=== PATIENT | female | born 1945 | race Caucasian/White ===

== ENCOUNTER 2017-12-27 08:53 | Inpatient (IN) ==
[2017-12-27] MEDS ORDERED: 0.9 % Sodium Chloride 1,000 ML IVC ONE (09:08)
--- NOTE | 2017-12-27 09:13 | Emergency Department Note ---
Disposition Clinical Impression: Hypotension Sepsis Qualifiers: Sepsis type: sepsis due to unspecified organism Qualified Code(s): A41.9 - Sepsis, unspecified organism Pneumonia Qualifiers: Pneumonia type: due to unspecified organism Laterality: unspecified laterality Lung location: unspecified part of lung Qualified Code(s): J18.9 - Pneumonia, unspecified organism Urinary tract infection Qualifiers: Urinary tract infection type: site unspecified Hematuria presence: without hematuria Qualified Code(s): N39.0 - Urinary tract infection, site not specified Disposition: Admitted As Inpatient Condition: Fair Referrals: Isabelle Dick MD [Primary Care Provider] - Forms: ED Satisfaction Letter Time of Disposition: 10:24 General Adult HPI - General Chief complaint: ED Nausea/Vomiting/Diarrhea Stated complaint: Low BP/Vomiting Time Seen by Provider: 12/27/17 09:07 Source: family (caregiver) Mode of arrival: wheelchair Limitations: language barrier Nursing Notes Reviewed: Yes Vital Signs Reviewed: Yes - History of Present Illness HPI Narrative: 72-year-old female history of MRDD and recent diagnosis of lung cancer 1 week ago presents an emergency department in the presence of paperhanger pipe and family for low blood pressure. Patient was at the [facility] office for consultation where her blood pressure was systolic 94. The paperhanger pipe states this is lower than usual. Of note patient has been coughing, dry heaving and not eating well since they presumed care in August. Since September the patient has lost 20 pounds. Patient resides in the [place] [facility] with 2 caretakers. They have noticed that her urine output has diminished. There is concern for dehydration. The patient is pleasant but has no complaints. The paperhanger pipe and family states she normally can give cues on when she is in pain or uncomfortable. They have not noticed any. Patient does not have a history of hypertension or cardiac ischemic disease. They have not noticed any fevers, rhinorrhea, diarrhea. Caretakers and family states she is acting her baseline. Pain Scale: 0 - Related Data Home Medications Medication Instructions Recorded Confirmed Cholecalciferol (D-3) [Vitamin D] 2,000 unit PO DAILY 09/04/17 12/27/17 FLUoxetine HCl [PROzac] 20 mg PO DAILY #0 11/01/17 12/27/17 traZODone [TraZODone] 50 mg PO HS #0 11/01/17 12/27/17 Alendronate Sodium [Fosamax] 70 mg PO TH 12/09/17 12/27/17 Calcium Carbonate/Vitamin D3 1 tab PO TID 12/09/17 12/27/17 [Oyster Shell 250 mg + Vit D Tb] Acetaminophen [Tylenol] 650 mg PO Q4HR PRN 12/27/17 12/27/17 Benzonatate [Tessalon] 200 mg PO TID PRN 12/27/17 12/27/17 Clindamycin HCl [Cleocin HCl] 300 mg PO TID 12/27/17 12/27/17 Ibuprofen [Motrin] 400 mg PO Q4HR PRN 12/27/17 12/27/17 L. Acidophilus/Pectin, [place] 1 cap PO HS 12/27/17 12/27/17 [Acidophilus Probiotic Capsule] MOM Conc [Milk of Magnesia Conc] 30 ml PO DAILY PRN 12/27/17 12/27/17 Mag Hydrox/Al Hydrox/Simeth 30 ml PO Q4H PRN 12/27/17 12/27/17 [Maalox] Omeprazole [PriLOSEC] 20 mg PO DAILY 12/27/17 12/27/17 Potassium Chloride 10 meq PO BID 12/27/17 12/27/17 Previous Rx's Medication Instructions Recorded Ascorbic Acid [Vitamin C] 500 mg PO DAILY #30 tablet 12/20/17 Ferrous Sulfate 325 mg PO DAILY #30 tablet 12/20/17 HYDROcodone/Acet 5/325 mg [[place] 1 tab PO Q6HR PRN 5 Days #20 tablet 12/20/17 5-325 mg] Loratadine [Claritin] 10 mg PO DAILY PRN #0 12/20/17 Allergies Allergy/AdvReac Type Severity Reaction Status Date / Time Penicillins Allergy See Verified 12/27/17 10:21 Comments All systems ED: reviewed and negative except as stated. Review of Systems: As Per HPI Constitutional: Reports: weakness, weight change (20 pounds). Denies: fever, chills ENT ED: Denies: congestion Cardiovascular: Denies: chest pain Respiratory: Reports: cough. Denies: dyspnea Gastrointestinal: Reports: nausea, constipation. Denies: abdominal pain, diarrhea Genitourinary: Denies: urgency, dysuria Past Medical History - Past Medical History Source: old records reviewed, obtained from family Medical history: Reports: other Surgical history: Reports: non-contributory Psychiatric history: Reports: depression - Social History Smoking Status: Never smoker Smokeless Tobacco Status: No Alcohol use: Reports: none Drug use: Reports: none Physical Exam - General Limitations: language barrier General appearance: alert, in no apparent distress, cachectic (temporal muscle wasting) - Head Head exam: atraumatic, normocephalic, normal inspection - Eye Eye exam: Present: normal appearance, PERRL, EOMI. Absent: scleral icterus - ENT ENT exam: normal exam, normal oropharynx, mucous membranes moist - Neck Neck exam: Present: normal inspection, full ROM, trachea midline. Absent: tenderness - Chest Chest inspection: Present: normal inspection, symmetric chest wall rise - Respiratory Respiratory exam: Present: other (clear but diminished). Absent: respiratory distress, wheezes - Expanded Respiratory Exam Location: decreased breath sounds: Lower - Cardiovascular Cardiovascular exam: Present: regular rate, normal rhythm, normal heart sounds - Abdominal Exam Abdominal exam: Present: soft, Non-Tender, diminished bowel sounds. Absent: tenderness, distention, guarding, rebound, rigidity - Extremities Exam Extremities exam: Present: normal inspection, full ROM, normal capillary refill. Absent: tenderness, pedal edema - Psychiatric Psychiatric exam: Present: flat affect - Skin Skin exam: Present: warm, dry, intact, normal color. Absent: cyanosis, diaphoresis Course Course Narrative: Patient presents with hypotension. She is awake alert and appears in no acute distress. She is not complaining of any complaints at this time. Caretakers report decreased appetite and weight loss. Concern for dehydration. Patient is afebrile but hypotensive systolic 90s. She is not tachycardic. Sepsis workup initiated to rule infection. Will fluid hydrate with IV normal saline. Likely admission. - Reevaluation(s) Reevaluation #1: Review of chest x-ray shows concern for pneumonia seen in the right lung base concerning for possible aspiration. This is new compared to prior CT scan performed over a week ago when she was diagnosed with cancer. She has a leukocytosis of 15. Urinalysis is also consistent with infection positive for nitrite and trace leuk esterase. She has a culture from 12/19/2017 that his pants sensitive after growing klebsiella and strep group b. Blood cultures have been ordered. Will initiate patient on cefepime and vancomycin given her comorbidities and recent hospitalization. Patient is allergic to penicillin due to rash will administer and monitor for any cefepime cross-reactivity. Patient's blood pressure has improved after 500 mL of normal saline, blood pressure has come up to systolic 114. Her lactate is normal at 1.3. She is complaining of some back pain from a prior compression fracture seen on CT scan. She has taken her hydrocodone today will give her another one carefully monitoring hemodynamics. Time: 09:56 Reevaluation #2: Spoke with family and caretakers in the room and they have agreed on code status of do not resuscitate comfort care, they have been in the talks with primary care physician Dr. Dick regarding possible hospice care as she has been told that radiation is not a great option for her. They have a planned biopsy on Saturday to confirm malignancy. Patient will be admitted for suspected sepsis secondary to pneumonia and urinary tract infection, blood pressure has responded to IV fluid within normal lactate to not suspect septic shock. Time: 10:22 - Consultations Consultation #1: Spoke with on-call hospitalist linda Richards to admit for sepsis, pneumonia, UTI, hypotension responsive to IVF. No further orders at this time Time: 10:37 Vital Signs Temperature 98.5 F 12/27/17 08:55 Pulse Rate 94 12/27/17 08:55 Respiratory Rate 18 12/27/17 08:55 Blood Pressure 94/64 12/27/17 08:55 O2 Sat by Pulse Oximetry 96 12/27/17 08:55 Temperature 98.0 F 12/27/17 09:30 Pulse Rate 84 12/27/17 09:30 Respiratory Rate 18 12/27/17 09:30 Blood Pressure 114/76 12/27/17 09:30 O2 Sat by Pulse Oximetry 94 12/27/17 09:30 Oxygen Delivery Oxygen Delivery Room Air Medical Decision Making - MDM Narrative Medical decision making narrative: Patient was discussed with my attending physician who agrees with ED management and final disposition. They independently evaluated the patient. Please refer to their attestation to this encounter for additional information. This note was generated by [employer] voice recognition software and as a result grammatical or spelling errors may occur using this program. - Medical Records Medical records reviewed: Yes I reviewed the patient's medical records. - Lab Data Lab results reviewed: Yes I reviewed the patient's lab results. Result diagrams: 12/27/17 09:08 12/27/17 09:08 Lab Results 12/27/17 12/27/17 12/27/17 Range/Units 09:08 09:08 09:14 WBC 15.0 H (4.3-11.1) K/mcL RBC 4.90 (3.82-4.97) M/mcL Hgb 12.3 (11.5-15.4) g/dL Hct 40.0 (35.3-44.9) % MCV 81.6 L (83.0-100.0) fL MCH 25.1 L (28.0-33.3) pg MCHC 30.8 L (31.6-35.5) g/dL RDW 14.7 H (11.5-14.5) % Plt Count 422 H (140-400) K/mcL MPV 9.2 L (9.4-12.4) fL Immature Gran % 1.5 (0-4) % Seg Neutrophils % 80.3 % Lymphocytes % 8.4 % Monocytes % 7.8 % Eosinophils % 1.5 % Basophils % 0.5 % Neutrophils # 12.0 H (1.6-8.9) K/mcL Lymphocytes # 1.3 (0.6-4.6) K/mcL Monocytes # 1.2 (0.0-1.3) K/mcL Eosinophils # 0.2 (0.0-0.6) K/mcL Basophils # 0.1 (0.0-0.2) K/mcL Sodium 138 (136-145) mEq/L Potassium 3.9 (3.5-5.1) mEq/L Chloride 99 (98-107) mEq/L Carbon Dioxide 31 H (23-29) mEq/L BUN 25 H (8-23) mg/dL Creatinine 0.66 (0.60-1.20) mg/dL Est GFR ( Amer) > 60 (> 60) Est GFR (Non-Af Amer) > 60 (> 60) BUN/Creatinine Ratio 38 H (6-26) Glucose 119 H (70-105) mg/dL POC Glucose (70-99) mg/dL Calculated Osmolality 292 (280-300) Lactic Acid 1.3 (0.5-2.2) mmol/L Calcium 10.0 (8.6-10.3) mg/dL Total Bilirubin 0.5 (0.3-1.0) mg/dL AST 29 (13-39) Units/L ALT 22 (7-52) Units/L Alkaline Phosphatase 180 H (34-104) Units/L Troponin I < 0.03 (< 0.04) ng/mL Serum Total Protein 6.6 (6.4-8.9) g/dL Albumin 3.4 L (3.5-5.7) g/dL Globulin 3.2 (2.4-3.5) g/dL Albumin/Globulin Ratio 1.1 (1.1-2.2) Urine Color (Yellow) Urine Clarity (Clear) Urine pH (5.0-8.0) pH Units Ur Specific [place] (1.010-1.025) Urine Protein (Neg-Trace) mg/dL Urine Glucose (UA) (Normal) mg/dL Urine Ketones (Negative) mg/dL Urine Blood (Negative) Urine Nitrite (Negative) Urine Bilirubin (Negative) Urine Urobilinogen (Normal) mg/dL Ur Leukocyte Esterase (Negative) Urine Microscopic RBC (0-3) per hpf Urine Microscopic WBC (0-3) per hpf Ur Squamous Epith Cells (None-Few) per lpf Urine Bacteria (None-Few) per hpf Hyaline Casts (None-Few) per lpf Ur Culture Indicated? (NO) 12/27/17 12/27/17 Range/Units 09:25 09:31 WBC (4.3-11.1) K/mcL RBC (3.82-4.97) M/mcL Hgb (11.5-15.4) g/dL Hct (35.3-44.9) % MCV (83.0-100.0) fL MCH (28.0-33.3) pg MCHC (31.6-35.5) g/dL RDW (11.5-14.5) % Plt Count (140-400) K/mcL MPV (9.4-12.4) fL Immature Gran % (0-4) % Seg Neutrophils % % Lymphocytes % % Monocytes % % Eosinophils % % Basophils % % Neutrophils # (1.6-8.9) K/mcL Lymphocytes # (0.6-4.6) K/mcL Monocytes # (0.0-1.3) K/mcL Eosinophils # (0.0-0.6) K/mcL Basophils # (0.0-0.2) K/mcL Sodium (136-145) mEq/L Potassium (3.5-5.1) mEq/L Chloride (98-107) mEq/L Carbon Dioxide (23-29) mEq/L BUN (8-23) mg/dL Creatinine (0.60-1.20) mg/dL Est GFR ( Amer) (> 60) Est GFR (Non-Af Amer) (> 60) BUN/Creatinine Ratio (6-26) Glucose (70-105) mg/dL POC Glucose 102 H (70-99) mg/dL Calculated Osmolality (280-300) Lactic Acid (0.5-2.2) mmol/L Calcium (8.6-10.3) mg/dL Total Bilirubin (0.3-1.0) mg/dL AST (13-39) Units/L ALT (7-52) Units/L Alkaline Phosphatase (34-104) Units/L Troponin I (< 0.04) ng/mL Serum Total Protein (6.4-8.9) g/dL Albumin (3.5-5.7) g/dL Globulin (2.4-3.5) g/dL Albumin/Globulin Ratio (1.1-2.2) Urine Color Dark Yellow (Yellow) Urine Clarity Clear (Clear) Urine pH 5.5 (5.0-8.0) pH Units Ur Specific [place] 1.028 H (1.010-1.025) Urine Protein Trace (Neg-Trace) mg/dL Urine Glucose (UA) Normal (Normal) mg/dL Urine Ketones Trace H (Negative) mg/dL Urine Blood Negative (Negative) Urine Nitrite Positive A (Negative) Urine Bilirubin Negative (Negative) Urine Urobilinogen 2.0 H (Normal) mg/dL Ur Leukocyte Esterase Trace H (Negative) Urine Microscopic RBC 3-5 H (0-3) per hpf Urine Microscopic WBC 5-15 H (0-3) per hpf Ur Squamous Epith Cells Many H (None-Few) per lpf Urine Bacteria Many H (None-Few) per hpf Hyaline Casts None Seen (None-Few) per lpf Ur Culture Indicated? NO. A (NO) - Radiology Data Radiology results reviewed: Yes I reviewed the patient's radiology results. Chest X-Ray 12/27/17 09:08 IMPRESSION: New focal airspace opacity in the right lung base suspicious for pneumonia. D/ / Mandy Duran MD / Mandy Duran MD Interpreting Provider: Mandy Duran MD - EKG Data EKG #1 EKG attestation: Yes I reviewed and interpreted this EKG. EKG results narrative: EKG performed 908 normal sinus rhythm 91 beats per minute, normal axis, good R wave progression, no ST elevation or depression, no T-wave inversion. No acute ischemic changes. No old EKG is available for comparison at this time.
[2017-12-27 09:31] LABS: Basophils # 0.1 K/mcL (0.0-0.2); Basophils % 0.5 %; Eosinophils # 0.2 K/mcL (0.0-0.6); Eosinophils % 1.5 %; Hemoglobin 12.3 g/dL (11.5-15.4); Immature Granulocytes % 1.5 % (0-4); Lymphocytes # 1.3 K/mcL (0.6-4.6); Lymphocytes % 8.4 %; Mean Corpuscular HGB Conc 30.8 g/dL (31.6-35.5); Mean Corpuscular Hemoglobin 25.1 pg (28.0-33.3); Mean Corpuscular Volume 81.6 fL (83.0-100.0); Mean Platelet Volume 9.2 fL (9.4-12.4); Monocytes # 1.2 K/mcL (0.0-1.3); Monocytes % 7.8 %; Platelet Count 422 K/mcL (140-400); Red Cell Distribution Width 14.7 % (11.5-14.5); Segmented Neutrophils % 80.3 %
[2017-12-27 09:37] LABS: Bilirubin,Urine Negative (Negative); Blood,Urine Negative (Negative); Clarity,Urine Clear (Clear); Color,Urine Dark Yellow (Yellow); Glucose,Urine (UA) Normal (Normal); Ketones,Urine Trace mg/dL (Negative); Leukocyte Esterase,Urine Trace (Negative); Nitrite,Urine Positive (Negative); PH,Urine 5.5 pH Units (5.0-8.0); Protein,Urine Trace mg/dL (Neg-Trace); Specific Gravity,Urine 1.028 (1.010-1.025)
[2017-12-27 09:40] LABS: Bacteria,Urine Many per hpf (None-Few); Hyaline Casts,Urine None Seen per lpf (None-Few); Squamous Epithelial Cell,Urine Many per lpf (None-Few)
--- NOTE | 2017-12-27 09:42 | Emergency Department Note ---
Disposition Clinical Impression: Hypotension Sepsis Qualifiers: Sepsis type: sepsis due to unspecified organism Qualified Code(s): A41.9 - Sepsis, unspecified organism Pneumonia Qualifiers: Pneumonia type: due to unspecified organism Laterality: unspecified laterality Lung location: unspecified part of lung Qualified Code(s): J18.9 - Pneumonia, unspecified organism Urinary tract infection Qualifiers: Urinary tract infection type: site unspecified Hematuria presence: without hematuria Qualified Code(s): N39.0 - Urinary tract infection, site not specified Disposition: Admitted As Inpatient Referrals: Isabelle Dick MD [Primary Care Provider] - Forms: ED Satisfaction Letter Time of Disposition: 10:42 General Adult HPI - General Chief complaint: ED Nausea/Vomiting/Diarrhea Stated complaint: Low BP/Vomiting Time Seen by Provider: 12/27/17 09:07 Source: family (caregiver) Mode of arrival: wheelchair Limitations: language barrier - History of Present Illness Pain Scale: 0 - Related Data Home Medications Medication Instructions Recorded Confirmed Cholecalciferol (D-3) [Vitamin D] 2,000 unit PO DAILY 09/04/17 12/27/17 FLUoxetine HCl [PROzac] 20 mg PO DAILY #0 11/01/17 12/27/17 traZODone [TraZODone] 50 mg PO HS #0 11/01/17 12/27/17 Alendronate Sodium [Fosamax] 70 mg PO TH 12/09/17 12/27/17 Calcium Carbonate/Vitamin D3 1 tab PO TID 12/09/17 12/27/17 [Oyster Shell 250 mg + Vit D Tb] Acetaminophen [Tylenol] 650 mg PO Q4HR PRN 12/27/17 12/27/17 Benzonatate [Tessalon] 200 mg PO TID PRN 12/27/17 12/27/17 Clindamycin HCl [Cleocin HCl] 300 mg PO TID 12/27/17 12/27/17 Ibuprofen [Motrin] 400 mg PO Q4HR PRN 12/27/17 12/27/17 L. Acidophilus/Pectin, [place] 1 cap PO HS 12/27/17 12/27/17 [Acidophilus Probiotic Capsule] MOM Conc [Milk of Magnesia Conc] 30 ml PO DAILY PRN 12/27/17 12/27/17 Mag Hydrox/Al Hydrox/Simeth 30 ml PO Q4H PRN 12/27/17 12/27/17 [Maalox] Omeprazole [PriLOSEC] 20 mg PO DAILY 12/27/17 12/27/17 Potassium Chloride 10 meq PO BID 12/27/17 12/27/17 Previous Rx's Medication Instructions Recorded Ascorbic Acid [Vitamin C] 500 mg PO DAILY #30 tablet 12/20/17 Ferrous Sulfate 325 mg PO DAILY #30 tablet 12/20/17 HYDROcodone/Acet 5/325 mg [[place] 1 tab PO Q6HR PRN 5 Days #20 tablet 12/20/17 5-325 mg] Loratadine [Claritin] 10 mg PO DAILY PRN #0 12/20/17 Allergies Allergy/AdvReac Type Severity Reaction Status Date / Time Penicillins Allergy See Verified 12/27/17 10:21 Comments Constitutional: Reports: weakness, weight change (20 pounds). Denies: fever, chills ENT ED: Denies: congestion Cardiovascular: Denies: chest pain Respiratory: Reports: cough. Denies: dyspnea Gastrointestinal: Reports: nausea, constipation. Denies: abdominal pain, diarrhea Genitourinary: Denies: urgency, dysuria Past Medical History - Past Medical History Medical history: Reports: other Surgical history: Reports: non-contributory Psychiatric history: Reports: depression - Social History Smoking Status: Never smoker Smokeless Tobacco Status: No Alcohol use: Reports: none Drug use: Reports: none Physical Exam - General Limitations: language barrier General appearance: alert, in no apparent distress, cachectic (temporal muscle wasting) Course Vital Signs Temperature 98.5 F 12/27/17 08:55 Pulse Rate 94 12/27/17 08:55 Respiratory Rate 18 12/27/17 08:55 Blood Pressure 94/64 12/27/17 08:55 O2 Sat by Pulse Oximetry 96 12/27/17 08:55 Temperature 98.0 F 12/27/17 09:30 Pulse Rate 84 12/27/17 09:30 Respiratory Rate 18 12/27/17 09:30 Blood Pressure 114/76 12/27/17 09:30 O2 Sat by Pulse Oximetry 94 12/27/17 09:30 Oxygen Delivery Oxygen Delivery Room Air Medical Decision Making - Lab Data Result diagrams: 12/27/17 09:08 12/27/17 09:08 Lab Results 12/27/17 12/27/17 12/27/17 Range/Units 09:08 09:08 09:14 WBC 15.0 H (4.3-11.1) K/mcL RBC 4.90 (3.82-4.97) M/mcL Hgb 12.3 (11.5-15.4) g/dL Hct 40.0 (35.3-44.9) % MCV 81.6 L (83.0-100.0) fL MCH 25.1 L (28.0-33.3) pg MCHC 30.8 L (31.6-35.5) g/dL RDW 14.7 H (11.5-14.5) % Plt Count 422 H (140-400) K/mcL MPV 9.2 L (9.4-12.4) fL Immature Gran % 1.5 (0-4) % Seg Neutrophils % 80.3 % Lymphocytes % 8.4 % Monocytes % 7.8 % Eosinophils % 1.5 % Basophils % 0.5 % Neutrophils # 12.0 H (1.6-8.9) K/mcL Lymphocytes # 1.3 (0.6-4.6) K/mcL Monocytes # 1.2 (0.0-1.3) K/mcL Eosinophils # 0.2 (0.0-0.6) K/mcL Basophils # 0.1 (0.0-0.2) K/mcL Sodium 138 (136-145) mEq/L Potassium 3.9 (3.5-5.1) mEq/L Chloride 99 (98-107) mEq/L Carbon Dioxide 31 H (23-29) mEq/L BUN 25 H (8-23) mg/dL Creatinine 0.66 (0.60-1.20) mg/dL Est GFR ( Amer) > 60 (> 60) Est GFR (Non-Af Amer) > 60 (> 60) BUN/Creatinine Ratio 38 H (6-26) Glucose 119 H (70-105) mg/dL POC Glucose (70-99) mg/dL Calculated Osmolality 292 (280-300) Lactic Acid 1.3 (0.5-2.2) mmol/L Calcium 10.0 (8.6-10.3) mg/dL Total Bilirubin 0.5 (0.3-1.0) mg/dL AST 29 (13-39) Units/L ALT 22 (7-52) Units/L Alkaline Phosphatase 180 H (34-104) Units/L Troponin I < 0.03 (< 0.04) ng/mL Serum Total Protein 6.6 (6.4-8.9) g/dL Albumin 3.4 L (3.5-5.7) g/dL Globulin 3.2 (2.4-3.5) g/dL Albumin/Globulin Ratio 1.1 (1.1-2.2) Urine Color (Yellow) Urine Clarity (Clear) Urine pH (5.0-8.0) pH Units Ur Specific [place] (1.010-1.025) Urine Protein (Neg-Trace) mg/dL Urine Glucose (UA) (Normal) mg/dL Urine Ketones (Negative) mg/dL Urine Blood (Negative) Urine Nitrite (Negative) Urine Bilirubin (Negative) Urine Urobilinogen (Normal) mg/dL Ur Leukocyte Esterase (Negative) Urine Microscopic RBC (0-3) per hpf Urine Microscopic WBC (0-3) per hpf Ur Squamous Epith Cells (None-Few) per lpf Urine Bacteria (None-Few) per hpf Hyaline Casts (None-Few) per lpf Ur Culture Indicated? (NO) 12/27/17 12/27/17 Range/Units 09:25 09:31 WBC (4.3-11.1) K/mcL RBC (3.82-4.97) M/mcL Hgb (11.5-15.4) g/dL Hct (35.3-44.9) % MCV (83.0-100.0) fL MCH (28.0-33.3) pg MCHC (31.6-35.5) g/dL RDW (11.5-14.5) % Plt Count (140-400) K/mcL MPV (9.4-12.4) fL Immature Gran % (0-4) % Seg Neutrophils % % Lymphocytes % % Monocytes % % Eosinophils % % Basophils % % Neutrophils # (1.6-8.9) K/mcL Lymphocytes # (0.6-4.6) K/mcL Monocytes # (0.0-1.3) K/mcL Eosinophils # (0.0-0.6) K/mcL Basophils # (0.0-0.2) K/mcL Sodium (136-145) mEq/L Potassium (3.5-5.1) mEq/L Chloride (98-107) mEq/L Carbon Dioxide (23-29) mEq/L BUN (8-23) mg/dL Creatinine (0.60-1.20) mg/dL Est GFR ( Amer) (> 60) Est GFR (Non-Af Amer) (> 60) BUN/Creatinine Ratio (6-26) Glucose (70-105) mg/dL POC Glucose 102 H (70-99) mg/dL Calculated Osmolality (280-300) Lactic Acid (0.5-2.2) mmol/L Calcium (8.6-10.3) mg/dL Total Bilirubin (0.3-1.0) mg/dL AST (13-39) Units/L ALT (7-52) Units/L Alkaline Phosphatase (34-104) Units/L Troponin I (< 0.04) ng/mL Serum Total Protein (6.4-8.9) g/dL Albumin (3.5-5.7) g/dL Globulin (2.4-3.5) g/dL Albumin/Globulin Ratio (1.1-2.2) Urine Color Dark Yellow (Yellow) Urine Clarity Clear (Clear) Urine pH 5.5 (5.0-8.0) pH Units Ur Specific [place] 1.028 H (1.010-1.025) Urine Protein Trace (Neg-Trace) mg/dL Urine Glucose (UA) Normal (Normal) mg/dL Urine Ketones Trace H (Negative) mg/dL Urine Blood Negative (Negative) Urine Nitrite Positive A (Negative) Urine Bilirubin Negative (Negative) Urine Urobilinogen 2.0 H (Normal) mg/dL Ur Leukocyte Esterase Trace H (Negative) Urine Microscopic RBC 3-5 H (0-3) per hpf Urine Microscopic WBC 5-15 H (0-3) per hpf Ur Squamous Epith Cells Many H (None-Few) per lpf Urine Bacteria Many H (None-Few) per hpf Hyaline Casts None Seen (None-Few) per lpf Ur Culture Indicated? NO. A (NO) Critical Care Time Critical Care Time: Yes Total Critical Care Time: 40 Attestation: Critical care performed: Time is exclusive of separately billable procedures. Time includes: direct patient care, patient reassessment, coordination of patient care, interpretation of data (laboratory data, radiology data, and respiratory data), review of patient's medical records, medical consultation and documentation of patient care. Procedures included in critical care time: Procedures excluded from critical care time: Attestation Statement - Attestation Attestation: I examined this patient and my medical decision-making was reviewed with the Resident Physician. I agree with the documented findings, disposition and treatment plan as described except to the extent set forth below. Patient presents to the ED with a chief complaint of low blood pressure. Patient was sent from pulmonology office for low blood pressure. She was there today for consultation for her newly diagnosed lung cancer. Ham Trimmer states she has not been eating or drinking well. She is dehydrated. On examination she is awake and alert in no acute distress. Lungs diminished but clear. Plan. Septic workup. Patient's blood pressure here is in the 90s systolic. She is afebrile. This could all be from dehydration. Likely admission. Patient admitted for pneumonia, UTI, sepsis without shock. Blood pressure is improved after single bolus. Patient mentating at baseline. IV antibiotics started. Accepted to medicine service.
[2017-12-27 09:45] LABS: Troponin I < 0.03 ng/mL (< 0.04)
[2017-12-27] MEDS ORDERED: Vancomycin 500 MG in 0.9 % Sodium Chloride 250 ML IVPB ONE ×2 (09:45→12:00)
[2017-12-27] MEDS ORDERED: Cefepime HCl 2,000 MG in Water for inj. (sterile) 20 ML 20 ML IVP ONE (09:45)
[2017-12-27 09:46] LABS: Alanine Aminotransferase 22 Units/L (7-52); Albumin 3.4 g/dL (3.5-5.7); Albumin/Globulin Ratio 1.1 (1.1-2.2); Alkaline Phosphatase 180 Units/L (34-104); Aspartate Amino Transferase 29 Units/L (13-39); BUN/Creatinine Ratio 38 (6-26); Bilirubin,Total 0.5 mg/dL (0.3-1.0); Blood Urea Nitrogen 25 mg/dL (8-23); Carbon Dioxide 31 mEq/L (23-29); Chloride 99 mEq/L (98-107); Globulin 3.2 g/dL (2.4-3.5); Glucose 119 mg/dL (70-105); Osmolality,Calculated 292 (280-300); Potassium 3.9 mEq/L (3.5-5.1); Sodium 138 mEq/L (136-145); Total Protein 6.6 g/dL (6.4-8.9); eGFR For African Americans > 60 (> 60); eGFR For Non-African Americans > 60 (> 60)
[2017-12-27] MEDS ORDERED: Levofloxacin 750 MG/150 ML 750 MG/150 ML BAG IVPB ONE (10:12)
[2017-12-27] MEDS ORDERED: Naloxone 0.4 MG/ML INJ IVP PRN (10:43)
[2017-12-27] MEDS ORDERED: Benzonatate 100 MG CAPSULE PO PRN (10:48)
[2017-12-27] MEDS ORDERED: MOM Conc 10 ML UD.LIQ PO PRN (10:48)
[2017-12-27] MEDS ORDERED: Loratadine 10 MG TABLET PO PRN (10:48)
[2017-12-27] MEDS ORDERED: Mag Hydrox/Al Hydrox/Simeth 30 ML UDC PO PRN (10:48)
[2017-12-27] MEDS: Ipratropium/Albuterol Neb 3 ML IH SCH ×4 (15:10→23:31)
[2017-12-27] MEDS: Ondansetron 4 MG/2 ML VIAL IVP PRN (15:25)
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
[2017-12-27] MEDS: 0.9 % Sodium Chloride 1,000 ML IVC SCH (15:38)
[2017-12-27] MEDS: VITAMIN D3 PO SCH (15:41)
[2017-12-27] MEDS: CALCIUM CARBONATE PO SCH (15:41)
[2017-12-27] MEDS: MethylPREDNISolone 40 MG/ML VIAL IVP SCH ×2 (15:41→18:06)
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
[2017-12-27] MEDS: *HR* HYDROcodone/Acet 5/325 mg TABLET PO PRN (15:58)
[2017-12-27] MEDS: *HR* Promethazine 25 MG/ML VIAL IVP PRN (16:04)
[2017-12-27] MEDS: Lactobacillus 1 EACH CAP.SPRINK PO SCH (21:13)
[2017-12-27] MEDS: *HR* OxyCODONE Immed Rel 5 MG TABLET PO PRN (21:13)
[2017-12-27] MEDS: traZODone 50 MG TABLET PO SCH (21:13)
[2017-12-28] MEDS: 0.9 % Sodium Chloride 1,000 ML IVC SCH (02:05)
[2017-12-28] MEDS: *HR* OxyCODONE Immed Rel 5 MG TABLET PO PRN ×2 (02:06→22:20)
[2017-12-28] MEDS: *HR* Promethazine 25 MG/ML VIAL IVP PRN (02:06)
[2017-12-28] MEDS: VITAMIN D3 PO SCH ×4 (02:06→20:15)
[2017-12-28] MEDS: CALCIUM CARBONATE PO SCH ×4 (02:06→20:15)
[2017-12-28] MEDS: Ipratropium/Albuterol Neb 3 ML IH SCH ×6 (03:45→23:42)
[2017-12-28 04:57] LABS: Hematocrit 30.2 % (35.3-44.9); Immature Granulocytes % 1.9 % (0-4); Lymphocytes % 4.6 %; Mean Corpuscular HGB Conc 32.1 g/dL (31.6-35.5); Mean Corpuscular Hemoglobin 26.1 pg (28.0-33.3); Mean Corpuscular Volume 81.4 fL (83.0-100.0); Mean Platelet Volume 9.7 fL (9.4-12.4); Monocytes % 2.8 %; Platelet Count 350 K/mcL (140-400); Red Blood Count 3.71 M/mcL (3.82-4.97); Red Cell Distribution Width 14.6 % (11.5-14.5); Segmented Neutrophils % 90.4 %
[2017-12-28 04:58] LABS: Basophils % 0.2 %; Eosinophils % 0.1 %; Lymphocytes # 0.7 K/mcL (0.6-4.6); Monocytes # 0.4 K/mcL (0.0-1.3)
[2017-12-28 05:07] LABS: Hemoglobin 9.7 g/dL (11.5-15.4)
[2017-12-28 05:14] LABS: BUN/Creatinine Ratio 28 (6-26); Blood Urea Nitrogen 15 mg/dL (8-23); Calcium 8.6 mg/dL (8.6-10.3); Carbon Dioxide 25 mEq/L (23-29); Chloride 104 mEq/L (98-107); Glucose 154 mg/dL (70-105); Magnesium 1.7 mg/dL (1.6-2.6); Osmolality,Calculated 288 (280-300); Sodium 137 mEq/L (136-145); eGFR For African Americans > 60 (> 60); eGFR For Non-African Americans > 60 (> 60)
[2017-12-28] MEDS: MethylPREDNISolone 40 MG/ML VIAL IVP SCH ×4 (06:02→17:21)
[2017-12-28] MEDS: *HR* Enoxaparin 40 MG/0.4 ML SYRINGE SQ SCH (06:34)
[2017-12-28] MEDS: Cholecalciferol (D-3) 1,000 UNIT TABLET PO SCH (08:24)
[2017-12-28] MEDS: FLUoxetine 20 MG CAPSULE PO SCH (08:24)
[2017-12-28] MEDS: Ascorbic Acid 500 MG TABLET PO SCH (08:25)
[2017-12-28] MEDS: Levofloxacin 750 MG/150 ML 750 MG/150 ML BAG IVPB SCH (08:26)
[2017-12-28] MEDS: *HR* HYDROcodone/Acet 5/325 mg TABLET PO PRN (08:51)
[2017-12-28 10:38] LABS: Adenovirus Not Detected (Not Detect); Bordetella Pertussis Not Detected (Not Detect); Chlamydophila pneumoniae Not Detected (Not Detect); Coronavirus 229E Not Detected (Not Detect); Coronavirus HKU1 Not Detected (Not Detect); Coronavirus NL63 Not Detected (Not Detect); Coronavirus OC43 Not Detected (Not Detect); Human Metapneumovirus Not Detected (Not Detect); Human Rhinovirus/Enterovirus Not Detected (Not Detect); Influenza A Subtype 2009 H1 Not Detected (Not Detect); Influenza A Untypeable Not Detected (Not Detect); Influenza B Not Detected (Not Detect); Mycoplasma pneumoniae Not Detected (Not Detect); Parainfluenza Virus 1 Not Detected (Not Detect); Parainfluenza Virus 2 Not Detected (Not Detect); Parainfluenza Virus 3 Not Detected (Not Detect); Parainfluenza Virus 4 Not Detected (Not Detect); Respiratory Syncytial Virus Not Detected (Not Detect)
--- NOTE | 2017-12-28 14:47 | Internal Med Progress Note ---
Date of Encounter: 12/28/17 Time of Encounter: 14:44 - Assessment and plan (1) Pneumonia Current Visit: Yes Status: Inactive Assessment and plan: Patient percent with worsening shortness of breath, and cough with expectoration History of MRDD, family reporting patient also having some hemoptysis CXR reveals new focal airspace opacity in the right lung base suspicious for pneumonia CTA chest without PE, subcarinal mass worrisome for malignancy Acute compression fracture of T11 noted Legionella and strep pneumococcal antigen pending Sputum culture pending collection, Blood cultures pending Continue respiratory support when necessary, titrate SPO2 to remain greater than 92% Continuous telemetry Continue a BX Levaquin follow cultures and narrow antibiotics as appropriate Continue duo nebs and steroids Caregivers and family members requested for DNR CCA Palliative therapy on board Qualifiers: Pneumonia type: due to unspecified organism Laterality: unspecified laterality Lung location: unspecified part of lung Qualified Code(s): J18.9 - Pneumonia, unspecified organism (2) Mediastinal mass Current Visit: No Status: Acute Assessment and plan: Carinal mass noted on CT 12/18/[address] sanchez as outpatient Patient to undergo forearm nodule biopsy on Saturday per Dr. Gordon while inpatient Per family, plan is to make patient comfort care with home hospice D/W family on Saturday (3) Wedge compression fracture of T11 vertebra Current Visit: No Status: Acute Assessment and plan: T11 compression fracture seen on CTA Cause unclear; consider causes of osteoporosis as well possibly due to metastases Continue supportive care Pain medication as needed Qualifiers: Encounter type: initial encounter Fracture type: closed Qualified Code(s) : S22.080A - Wedge compression fracture of T11-T12 vertebra, initial encounter for closed fracture (4) Urinary tract infection Current Visit: No Status: Inactive Assessment and plan: Urinalysis nitrite positive, trace leukocyte esterase Urine cultures obtained 12/19/17 growing Klebsiella pneumonia, streptococcal lagalactiae with sensitivity to Levaquin Continue Levaquin IV Patient afebrile Qualifiers: Urinary tract infection type: site unspecified Hematuria presence: without hematuria Qualified Code(s): N39.0 - Urinary tract infection, site not specified (5) Hypotension Current Visit: No Status: Inactive Assessment and plan: Hypotension is improved, continue to monitor Qualifiers: Hypotension type: other hypotension type Qualified Code(s): I95.89 - Other hypotension (6) Acute respiratory distress Current Visit: No Status: Resolved Assessment and plan: Is likely Due to pneumonia and lung mass with possibly malignancy she does have reactive airway disease / bronchospasm Respiratory status improving, patient now on room air Continue duo nebs and IV steroids also place on oxygenPRN caregivers and family requested for DNR CCA also requested for palliative care assessment. - Time Spent With Patient Total time spent is greater than 50% in coordination of care (as documented) at patient's floor/unit and/or counseling patient: 25 - 35 minutes - Subjective Interval history: No acute changes overnight. - Constitutional Vitals: Temp Pulse Resp BP Pulse Ox 98.4 F 94 14 113/67 94 12/28/17 11:36 12/28/17 11:36 12/28/17 11:49 12/28/17 11:36 12/28/17 11:49 General appearance: Present: A&O X 0, cooperative, mild distress - Head Head exam: Present: atraumatic, normocephalic - Eye Eye exam: Present: PERRL, conjuntiva pink, sclera anicteric Pupils: Present: PERRL - Neck Neck exam general surgery: Present: supple, trachea midline. Absent: lymphadenopathy - Respiratory Respiratory exam: Present: CTAB, wheezes (Mild expiratory wheezes). Absent: accessory muscle use, rales, rhonchi - Cardiovascular Cardiovascular exam: Present: RRR, +S1, +S2. Absent: diastolic murmur, gallop, rubs, systolic murmur - GI/Abdominal GI/Abdominal exam: Present: normal bowel sounds, soft, no peritoneal signs. Absent: distended, tenderness - Extremities Exam Extremities exam: Present: warm, radial pulses palpable and symmetrical. Absent : calf tenderness, cyanotic, pedal edema - Neurological Exam Neurological exam: Present: CN II-XII intact, oriented X3, no focal deficits. Absent: pronater drift, facial droop, speech deficit - Skin Skin exam: Present: dry, intact Internal Medicine: Result - Labs CBC & Chem 7: 12/28/17 04:04 12/28/17 04:04 Labs: Short CBC 12/28/17 Range/Units 04:04 WBC 14.4 H (4.3-11.1) K/mcL Hgb 9.7 L D (11.5-15.4) g/dL Hct 30.2 L (35.3-44.9) % Plt Count 350 (140-400) K/mcL Neutrophils # 13.0 H (1.6-8.9) K/mcL BMP 12/28/17 04:04 Sodium 137 Potassium 4.0 Chloride 104 Carbon Dioxide 25 BUN 15 Creatinine 0.54 L Glucose 154 H Calcium 8.6 Consult Discharge Plan - Plan Referrals: Isabelle Dick MD [Primary Care Provider] -
[2017-12-28] MEDS: Lactobacillus 1 EACH CAP.SPRINK PO SCH (20:24)
[2017-12-28] MEDS: traZODone 50 MG TABLET PO SCH (20:24)
[2017-12-29] MEDS: MethylPREDNISolone 40 MG/ML VIAL IVP SCH ×2 (00:48→05:52)
[2017-12-29] MEDS: Ipratropium/Albuterol Neb 3 ML IH SCH ×6 (03:43→23:18)
[2017-12-29] MEDS: *HR* Enoxaparin 40 MG/0.4 ML SYRINGE SQ SCH (05:52)
[2017-12-29 06:01] LABS: Basophils % 0.2 %; Hematocrit 28.9 % (35.3-44.9); Hemoglobin 9.4 g/dL (11.5-15.4); Immature Granulocytes % 1.5 % (0-4); Lymphocytes # 0.6 K/mcL (0.6-4.6); Lymphocytes % 2.6 %; Mean Corpuscular HGB Conc 32.5 g/dL (31.6-35.5); Mean Corpuscular Hemoglobin 26.4 pg (28.0-33.3); Mean Corpuscular Volume 81.2 fL (83.0-100.0); Mean Platelet Volume 9.7 fL (9.4-12.4); Monocytes # 0.9 K/mcL (0.0-1.3); Monocytes % 3.8 %; Platelet Count 382 K/mcL (140-400); Red Blood Count 3.56 M/mcL (3.82-4.97); Red Cell Distribution Width 14.6 % (11.5-14.5); Segmented Neutrophils % 91.9 %
[2017-12-29 06:03] LABS: Basophils # 0.1 K/mcL (0.0-0.2); Neutrophils # 20.9 K/mcL (1.6-8.9)
[2017-12-29 06:19] LABS: BUN/Creatinine Ratio 25 (6-26); Blood Urea Nitrogen 13 mg/dL (8-23); Calcium 9.2 mg/dL (8.6-10.3); Carbon Dioxide 28 mEq/L (23-29); Chloride 106 mEq/L (98-107); Glucose 169 mg/dL (70-105); Osmolality,Calculated 294 (280-300); Potassium 3.5 mEq/L (3.5-5.1); Sodium 140 mEq/L (136-145); eGFR For African Americans > 60 (> 60); eGFR For Non-African Americans > 60 (> 60)
--- NOTE | 2017-12-29 07:15 | Internal Med Progress Note ---
Date of Encounter: 12/29/17 Time of Encounter: 07:09 - Assessment and plan (1) Pneumonia Current Visit: Yes Status: Inactive Assessment and plan: Patient presented with worsening shortness of breath, and cough with expectoration History of MRDD, caregivers reporting patient also having some hemoptysis CXR reveals new focal airspace opacity in the right lung base suspicious for pneumonia CTA chest on prior stay 12/21/17 without PE, subcarinal mass worrisome for malignancy; please see note regarding mass Acute compression fracture of T11 noted Legionella and strep pneumococcal antigen negative Sputum culture pending collection, Blood cultures no growth to date Patient appears to have improved, is on room air without respiratory distress, lungs CTA AP and L She is noted to have an increase in leukocytosis today with a WBC of 22.7. Likely due to IV steroids -Continue respiratory support when necessary, titrate SPO2 to remain greater than 92% -Continuous telemetry -Continue ABX Levaquin (Day-#3 Levaquin dose today); follow cultures and narrow antibiotics as appropriate -Continue duo nebs and steroids -Caregivers and family members requested for DNR CCA -Palliative therapy on board -Respiratory status improving, no longer wheezing; change IV steroids to oral, monitor Qualifiers: Pneumonia type: due to unspecified organism Laterality: unspecified laterality Lung location: unspecified part of lung Qualified Code(s): J18.9 - Pneumonia, unspecified organism (2) Mediastinal mass Current Visit: No Status: Acute Assessment and plan: Carinal mass noted on CT 12/18/17 Concerning for malignancy Has seen Dr. Gil as outpatient D/W JAY; does not wish to pursue chemotherapy/radiation if found to be cancer We will not perform bronchoscopy biopsy due to risks Patient to undergo forearm nodule biopsy on Saturday per Dr. Gordon while inpatient Follow forearm nodule biopsy results Per family, plan is to make patient comfort care with home hospice D/W family on Saturday Plan is to return to [facility] (3) Wedge compression fracture of T11 vertebra Current Visit: No Status: Acute Assessment and plan: T11 compression fracture seen on CTA Cause unclear; consider causes of osteoporosis as well possibly due to metastases Continue supportive care Pain medication as needed Qualifiers: Encounter type: initial encounter Fracture type: closed Qualified Code(s) : S22.080A - Wedge compression fracture of T11-T12 vertebra, initial encounter for closed fracture (4) Urinary tract infection Current Visit: No Status: Inactive Assessment and plan: Urinalysis nitrite positive, trace leukocyte esterase Urine cultures obtained 12/19/17 growing Klebsiella pneumonia, streptococcal lagalactiae with sensitivity to Levaquin The patient on Levaquin IV for PNA, Continue Levaquin IV as it will cover both UTI and PNA Patient afebrile Qualifiers: Urinary tract infection type: site unspecified Hematuria presence: without hematuria Qualified Code(s): N39.0 - Urinary tract infection, site not specified (5) Hypotension Current Visit: No Status: Inactive Assessment and plan: Improved, BP 109/68 this morning, continue to monitor, consider fluid bolus should patient become hypotensive again Qualifiers: Hypotension type: other hypotension type Qualified Code(s): I95.89 - Other hypotension (6) Acute respiratory distress Current Visit: No Status: Resolved Assessment and plan: Acute respiratory distress due to/to pneumonia and lung mass, concern for malignancy H/o reactive airway disease / bronchospasm, does not appear to be in acute exacerbation Respiratory status improving, patient now on room air, lungs CTA AP and L -Continue duo nebs -Change steroids to IV -Respiratory support per NC PRN -caregivers and family requested for DNR CCA -also requested for palliative care assessment. - Time Spent With Patient Total time spent is greater than 50% in coordination of care (as documented) at patient's floor/unit and/or counseling patient: 25 - 35 minutes - Subjective Interval history: No acute changes overnight. Patient unable to verbally communicate adequately, MRDD, no caregiver at bedside. - Constitutional Vitals: Temp Pulse Resp BP Pulse Ox 97.7 F 95 18 109/60 90 12/29/17 04:42 12/29/17 04:42 12/29/17 04:42 12/29/17 04:42 12/29/17 04:42 General appearance: Present: A&O X 0, cooperative - Head Head exam: Present: atraumatic, normocephalic - Eye Eye exam: Present: PERRL, conjuntiva pink, sclera anicteric Pupils: Present: PERRL - Neck Neck exam general surgery: Present: supple, trachea midline. Absent: lymphadenopathy - Respiratory Respiratory exam: Present: CTAB. Absent: accessory muscle use, chest wall tenderness, decreased breath sounds, prolonged expiratory phase, rales, respiratory distress, rhonchi, wheezes, tachypnea - Cardiovascular Cardiovascular exam: Present: RRR, +S1, +S2. Absent: diastolic murmur, gallop, rubs, systolic murmur - GI/Abdominal GI/Abdominal exam: Present: normal bowel sounds, soft, no peritoneal signs. Absent: distended, tenderness - Extremities Exam Extremities exam: Present: warm, radial pulses palpable and symmetrical. Absent : calf tenderness, cyanotic, pedal edema - Neurological Exam Neurological exam: Present: CN II-XII intact, oriented X3, no focal deficits. Absent: pronater drift, facial droop, speech deficit - Skin Skin exam: Present: dry, intact Internal Medicine: Result - Labs CBC & Chem 7: 12/29/17 04:37 12/29/17 04:37 Labs: Short CBC 12/29/17 Range/Units 04:37 WBC 22.7 H D (4.3-11.1) K/mcL Hgb 9.4 L (11.5-15.4) g/dL Hct 28.9 L (35.3-44.9) % Plt Count 382 (140-400) K/mcL Neutrophils # 20.9 H (1.6-8.9) K/mcL BMP 12/29/17 04:37 Sodium 140 Potassium 3.5 Chloride 106 Carbon Dioxide 28 BUN 13 Creatinine 0.51 L Glucose 169 H Calcium 9.2 Consult Discharge Plan - Plan Referrals: Isabelle Dick MD [Primary Care Provider] -
[2017-12-29] MEDS: Levofloxacin 750 MG/150 ML 750 MG/150 ML BAG IVPB SCH (10:29)
[2017-12-29] MEDS: Ascorbic Acid 500 MG TABLET PO SCH (10:30)
[2017-12-29] MEDS: predniSONE 20 MG TABLET PO SCH (10:30)
[2017-12-29] MEDS: Cholecalciferol (D-3) 1,000 UNIT TABLET PO SCH (10:30)
[2017-12-29] MEDS: FLUoxetine 20 MG CAPSULE PO SCH (10:30)
[2017-12-29] MEDS: VITAMIN D3 PO SCH ×3 (10:31→21:51)
[2017-12-29] MEDS: CALCIUM CARBONATE PO SCH ×3 (10:31→21:51)
[2017-12-29] MEDS: Acetaminophen 325 MG TABLET PO PRN (16:39)
[2017-12-29] MEDS: Ondansetron 4 MG/2 ML VIAL IVP PRN (20:14)
[2017-12-29] MEDS: traZODone 50 MG TABLET PO SCH (20:16)
[2017-12-29] MEDS: Lactobacillus 1 EACH CAP.SPRINK PO SCH (20:17)
--- NOTE | 2017-12-29 21:43 | Electrocardiograph Report ---
[place] [id number] Test Date: 2017-12-27 Pat Name: Deonna Stallworth Department: 102 Room: 3B Gender: F Director Of Cath Lab: Enrico : 1945 Requested By: Yandel Cohen Order Number: [id number] Reading MD: Franklin Rogers Measurements Intervals [place] Rate: 91 P: 49 NC: 129 QRS: 69 QRSD: 89 T: 74 QT: 360 QTc: 408 Interpretive Statements SINUS RHYTHM Electronically Signed On 12-29-2017 21:42:30 EDT by Franklin Rogers
[2017-12-29] MEDS: *HR* HYDROcodone/Acet 5/325 mg TABLET PO PRN (22:50)
[2017-12-30] MEDS: Ipratropium/Albuterol Neb 3 ML IH SCH ×3 (03:33→11:31)
[2017-12-30] MEDS: Acetaminophen 325 MG TABLET PO PRN (03:43)
[2017-12-30] MEDS: *HR* Enoxaparin 40 MG/0.4 ML SYRINGE SQ SCH (05:32)
[2017-12-30 06:39] LABS: Basophils % 0.2 %; Eosinophils % 0.1 %; Hematocrit 29.7 % (35.3-44.9); Hemoglobin 9.5 g/dL (11.5-15.4); Immature Granulocytes % 2.4 % (0-4); Lymphocytes # 1.8 K/mcL (0.6-4.6); Lymphocytes % 7.7 %; Mean Corpuscular Hemoglobin 25.9 pg (28.0-33.3); Mean Corpuscular Volume 80.9 fL (83.0-100.0); Mean Platelet Volume 9.4 fL (9.4-12.4); Monocytes # 1.7 K/mcL (0.0-1.3); Monocytes % 7.7 %; Neutrophils # 18.5 K/mcL (1.6-8.9); Platelet Count 406 K/mcL (140-400); Red Blood Count 3.67 M/mcL (3.82-4.97); Red Cell Distribution Width 14.8 % (11.5-14.5); Segmented Neutrophils % 81.9 %
[2017-12-30 07:11] LABS: BUN/Creatinine Ratio 31 (6-26); Blood Urea Nitrogen 20 mg/dL (8-23); Calcium 9.1 mg/dL (8.6-10.3); Carbon Dioxide 28 mEq/L (23-29); Chloride 107 mEq/L (98-107); Glucose 99 mg/dL (70-105); Osmolality,Calculated 297 (280-300); Potassium 3.6 mEq/L (3.5-5.1); Sodium 142 mEq/L (136-145); eGFR For African Americans > 60 (> 60); eGFR For Non-African Americans > 60 (> 60)
[2017-12-30] MEDS: Cholecalciferol (D-3) 1,000 UNIT TABLET PO SCH (08:11)
[2017-12-30] MEDS: predniSONE 20 MG TABLET PO SCH (08:11)
[2017-12-30] MEDS: *HR* HYDROcodone/Acet 5/325 mg TABLET PO PRN (08:11)
[2017-12-30] MEDS: Ascorbic Acid 500 MG TABLET PO SCH (08:11)
[2017-12-30] MEDS: FLUoxetine 20 MG CAPSULE PO SCH (08:11)
[2017-12-30] MEDS: Levofloxacin 750 MG/150 ML 750 MG/150 ML BAG IVPB SCH (08:12)
[2017-12-30] MEDS: CALCIUM CARBONATE PO SCH (08:12)
[2017-12-30] MEDS: VITAMIN D3 PO SCH (08:12)
--- NOTE | 2017-12-30 10:00 | Discharge Summary ---
- NOTES TO OUTPATIENT PROVIDER Notes to Outpatient Provider: Admitted and treated for pneumonia and UTI. Mediastinal mass concerning for malignancy. Also has tumor on left arm. Biopsy being completed on day of discharge by Dr. Gordon. Please follow-up with biopsy results. Patient to see PCP within 1 week of discharge Orders not resulted at time of discharge: Pending orders 12/31/17 04:00 Basic Metabolic Panel AM 0400 Complete Blood Count [HEME] AM 0400 01/01/18 04:00 Basic Metabolic Panel AM 0400 Complete Blood Count [HEME] AM 0400 01/02/18 04:00 Basic Metabolic Panel AM 0400 Complete Blood Count [HEME] AM 0400 Date of Encounter: 12/30/17 Time of Encounter: 09:58 - Discharge Diagnosis (1) Pneumonia Priority: Primary Status: Inactive Assessment and Plan: Patient presented with worsening shortness of breath, and cough with expectoration History of MRDD, caregivers reporting patient also having some hemoptysis CXR reveals new focal airspace opacity in the right lung base suspicious for pneumonia CTA chest on prior stay 12/21/17 without PE, subcarinal mass worrisome for malignancy; please see note regarding mass Acute compression fracture of T11 noted Legionella and strep pneumococcal antigen negative Sputum culture never collected; patient improving at time of D/C Blood cultures no growth to date Respiratory status has improved and patient is progressing back to baseline. Patient is on room air without respiratory distress, lungs remain CTA AP and L leukocytosis today with a WBC of 22.6 has remained afebrile greater than 48 hours. Likely due to steroids -Continue ABX Levaquin at d/c (Day-#4 Levaquin dose today); will need 6 more days of Levaquin with possible malignancy and possible immunocompromise -Continue steroids at D/C burst x5 days 40mg daily -Caregivers and family members requested for DNR CCA -Palliative therapy on board; patient to D/C to [facility] with [facility] and Palliative care Qualifiers: Pneumonia type: due to unspecified organism Laterality: unspecified laterality Lung location: unspecified part of lung Qualified Code(s): J18.9 - Pneumonia, unspecified organism (2) Mediastinal mass Priority: Secondary Status: Acute Assessment and Plan: Carinal mass noted on CT 12/18/17 Concerning for malignancy Has seen Dr. Gil as outpatient D/W POA; does not wish to pursue chemotherapy/radiation if found to be cancer Did not perform bronchoscopy biopsy due to risks; family in agreeance Patient to undergo forearm nodule biopsy on Saturday per Dr. Gordon while inpatient Follow/up forearm nodule biopsy results per performing physician (Dr. Gordon) Per family, plan is to make patient comfort care with home hospice at [facility] D/W family on Saturday Plan is to return to [facility] today pending SS and nurse navigator input Should D/C after forearm biopsy (3) Wedge compression fracture of T11 vertebra Priority: Secondary Status: Acute Assessment and Plan: T11 compression fracture seen on CTA Cause unclear; consider causes of osteoporosis as well possibly due to metastases Continue supportive care Pain medication as needed Qualifiers: Encounter type: initial encounter Fracture type: closed Qualified Code(s) : S22.080A - Wedge compression fracture of T11-T12 vertebra, initial encounter for closed fracture (4) Urinary tract infection Priority: Secondary Status: Inactive Assessment and Plan: Urinalysis nitrite positive, trace leukocyte esterase Urine cultures obtained 12/19/17 growing Klebsiella pneumonia, streptococcal lagalactiae with sensitivity to Levaquin Patient afebrile, slightly hypotensive, possible d/t infection with PNA and UTI ; however, does not appear septic and baseline BP unclear Continue levaquin PO at D/C with treat both UTI and PNA Qualifiers: Urinary tract infection type: site unspecified Hematuria presence: without hematuria Qualified Code(s): N39.0 - Urinary tract infection, site not specified (5) Hypotension Priority: Secondary Status: Inactive Assessment and Plan: hypotension baseline BP unclear stable in the 90's and 100's throughout stay not on anti-HTN medications D/C in stable condition to longterm Qualifiers: Hypotension type: other hypotension type Qualified Code(s): I95.89 - Other hypotension (6) Acute respiratory distress Priority: Secondary Status: Resolved Assessment and Plan: Acute respiratory distress due to/to pneumonia and lung mass, concern for malignancy H/o reactive airway disease / bronchospasm, does not appear to be in acute exacerbation Respiratory status improving, patient now on room air, lungs CTA AP and L - plan above Hospital course: Ms. Stallworth is a 72 year old female Please see assessment and plan for hospital course Discharge discussed with: patient, nurse, case management - Time Spent with Patient Total time spent providing and/or coordinating discharge services: Less than 30 minutes - Discharge Medications Prescriptions: OxyCODONE Immed Rel [Roxicodone 5 MG] 5 mg PO Q4HR PRN 4 Days #24 tablet PRN Reason: Severe Pain Ondansetron ODT [Zofran ODT] 4 mg SL Q6HR PRN 4 Days #16 tab.rapdis PRN Reason: nausea/vomiting levoFLOXacin [Levaquin] 750 mg PO DAILY 6 Days #6 tablet predniSONE [PredniSONE] 40 mg PO DAILY 5 Days #5 tablet Home Medications: Cholecalciferol (D-3) [Vitamin D] 2,000 unit PO DAILY 09/04/17 [History] FLUoxetine HCl [Prozac] 20 mg PO DAILY #0 11/01/17 [History] traZODone [TraZODone] 50 mg PO HS #0 11/01/17 [History] Alendronate Sodium [Fosamax] 70 mg PO TH 12/09/17 [History] Calcium Carbonate/Vitamin D3 [Oyster Shell 250 mg + Vit D Tb] 1 tab PO TID 12/09 [History] Ascorbic Acid [Vitamin C] 500 mg PO DAILY #30 tablet 12/20/17 [Rx] Ferrous Sulfate 325 mg PO DAILY #30 tablet 12/20/17 [Rx] HYDROcodone/Acet 5/325 mg [[place] 5-325 mg] 1 tab PO Q6HR PRN 5 Days #20 tablet 12/20/17 [Rx] Loratadine [Claritin] 10 mg PO DAILY PRN #0 12/20/17 [Rx] Acetaminophen [Tylenol] 650 mg PO Q4HR PRN 12/27/17 [History] Benzonatate [Tessalon] 200 mg PO TID PRN 12/27/17 [History] Ibuprofen [Motrin] 400 mg PO Q4HR PRN 12/27/17 [History] L. Acidophilus/Pectin, [place] [Acidophilus Probiotic Capsule] 1 cap PO HS [History] MOM Conc [MILK OF MAGNESIA conc] 30 ml PO DAILY PRN 12/27/17 [History] Mag Hydrox/Al Hydrox/Simeth [Maalox] 30 ml PO Q4H PRN 12/27/17 [History] Omeprazole [PriLOSEC] 20 mg PO DAILY 12/27/17 [History] Potassium Chloride 10 meq PO BID 12/27/17 [History] Ondansetron ODT [Zofran ODT] 4 mg SL Q6HR PRN 4 Days #16 tab.rapdis 12/30/17 [Rx ] OxyCODONE Immed Rel [Roxicodone 5 MG] 5 mg PO Q4HR PRN 4 Days #24 tablet [Rx] levoFLOXacin [Levaquin] 750 mg PO DAILY 6 Days #6 tablet 12/30/17 [Rx] predniSONE [PredniSONE] 40 mg PO DAILY 5 Days #5 tablet 12/30/17 [Rx] Allergies/Adverse Reactions: 3 Allergy/AdvReac Type Severity Reaction Status Date / Time Penicillins Allergy See Verified 12/27/17 10:21 Comments Date of admission: 12/27/17 11:30 Primary care physician: Isabelle Dick Consults: 12/27/17 15:18 Consult to Palliative Care [CONS] Routine Comment: Consulting Provider: Palliative Care Pilar Reason for Consult: Pt's care givers requested for home hospice Time Notified: 15:19 Call Completed: Yes Discharging clinician: Pelon Hurley Anticipated date of discharge: 12/30/17 - Constitutional Vitals: Temp Pulse Resp BP Pulse Ox 98.2 F 87 18 102/65 93 12/30/17 06:29 12/30/17 06:29 12/30/17 07:40 12/30/17 06:29 12/30/17 07:40 General appearance: Present: A&O X 0, cooperative - Head Head exam: Present: atraumatic, normocephalic - Eye Eye exam: Present: PERRL, conjuntiva pink, sclera anicteric Pupils: Present: PERRL - Neck Neck exam general surgery: Present: supple, trachea midline. Absent: lymphadenopathy - Respiratory Respiratory exam: Present: CTAB. Absent: accessory muscle use, rales, rhonchi, wheezes - Cardiovascular Cardiovascular exam: Present: RRR, +S1, +S2. Absent: diastolic murmur, gallop, rubs, systolic murmur - GI/Abdominal GI/Abdominal exam: Present: normal bowel sounds, soft, no peritoneal signs. Absent: distended, tenderness - Extremities Exam Extremities exam: Present: warm, radial pulses palpable and symmetrical. Absent : calf tenderness, cyanotic, pedal edema - Expanded Upper Extremities Exam Forearm wrist exam: Present: swelling (Left forearm), tenderness - Neurological Exam Neurological exam: Present: CN II-XII intact, oriented X3, no focal deficits. Absent: pronater drift, facial droop, speech deficit - Skin Skin exam: Present: dry, intact - Patient Status Disposition: Home Health Service Condition: Fair Overall status at discharge: patient is progressing back to baseline - Discharge Instructions Follow Up With: Isabelle Dick MD [Primary Care Provider] - - Diet and Activity Activity: resume usual activities as tolerated Diet: advance to your usual diet
[2017-12-30 11:10] VITALS: BP 113/67
--- NOTE | 2017-12-30 11:29 | Palliative Progress Note ---
Date of Encounter: 12/30/17 Time of Encounter: 10:00 - Assessment and plan (1) Lung mass Current Visit: No Status: Acute Assessment and plan: Patient has lung mass that is considered to be concern for malignancy. Patient plans to discharge home to [facility] with [facility] services. (2) Acute respiratory distress Current Visit: No Status: Resolved Assessment and plan: Patient's oxygen saturation 93% on room air. No s/s of distress noted. (3) Pneumonia Current Visit: Yes Status: Inactive Qualifiers: Pneumonia type: due to unspecified organism Laterality: unspecified laterality Lung location: unspecified part of lung Qualified Code(s): J18.9 - Pneumonia, unspecified organism (4) Urinary tract infection Current Visit: No Status: Inactive Qualifiers: Urinary tract infection type: site unspecified Hematuria presence: without hematuria Qualified Code(s): N39.0 - Urinary tract infection, site not specified (5) Goals of care, counseling/discussion Current Visit: No Status: Acute Assessment and plan: Spoke with Ginette Nurse for [facility]. Patient is to return to [facility] today with enrollment for [facility] hospice at [facility]. Rx sent for Roxicodone and Zofran. Ginette reports patient already has [place] 10/325mg at home. OARRS report confirms. - Time Spent With Patient Total time spent is greater than 50% in coordination of care (as documented) at patient's floor/unit and/or counseling patient: - Subjective Interval history: Patient resting in bed quietly on entry for assessment. Patient is alert and oriented times 2 (person and place), disoriented to time. Patient denies anxiety , Nausea, and vomiting during assessment. Patient reports "some pain," unable to designate score on pain scale. Patient able to follow commands and reports feeling much better and ready to go back to [facility]. Patient has received Tylenol X2 doses, [place] X4, Zofran X2, Phenergan X2, and Roxicodone times 3 doses in last 72 hours. - Constitutional Vitals: Abnormal lab results WBC 22.6 K/mcL (4.3-11.1) H 12/30/17 06:03 RBC 3.67 M/mcL (3.82-4.97) L 12/30/17 06:03 Hgb 9.5 g/dL (11.5-15.4) L 12/30/17 06:03 Hct 29.7 % (35.3-44.9) L 12/30/17 06:03 MCV 80.9 fL (83.0-100.0) L 12/30/17 06:03 MCH 25.9 pg (28.0-33.3) L 12/30/17 06:03 RDW 14.8 % (11.5-14.5) H 12/30/17 06:03 Plt Count 406 K/mcL (140-400) H 12/30/17 06:03 Neutrophils # 18.5 K/mcL (1.6-8.9) H 12/30/17 06:03 Monocytes # 1.7 K/mcL (0.0-1.3) H 12/30/17 06:03 BUN/Creatinine Ratio 31 (6-26) H 12/30/17 06:03 POC Glucose 102 mg/dL (70-99) H 12/27/17 09:31 Alkaline Phosphatase 180 Units/L (34-104) H 12/27/17 09:08 Albumin 3.4 g/dL (3.5-5.7) L 12/27/17 09:08 Ur Specific [place] 1.028 (1.010-1.025) H 12/27/17 09:25 Urine Ketones Trace mg/dL (Negative) H 12/27/17 09:25 Urine Nitrite Positive (Negative) A 12/27/17 09:25 Urine Urobilinogen 2.0 mg/dL (Normal) H 12/27/17 09:25 Ur Leukocyte Esterase Trace (Negative) H 12/27/17 09:25 Urine Microscopic RBC 3-5 per hpf (0-3) H 12/27/17 09:25 Urine Microscopic WBC 5-15 per hpf (0-3) H 12/27/17 09:25 Ur Squamous Epith Cells Many per lpf (None-Few) H 12/27/17 09:25 Urine Bacteria Many per hpf (None-Few) H 12/27/17 09:25 Ur Culture Indicated? NO. (NO) A 12/27/17 09:25 General appearance: Present: cooperative, no acute distress - Head Head exam: Present: atraumatic, normal inspection - Eye Eye exam: Present: normal appearance, PERRL Pupils: Present: normal accommodation, PERRL - ENT ENT exam: Present: normal external ear exam - Neck Neck exam: Present: full ROM, normal inspection - Respiratory Respiratory exam: Present: CTAB. Absent: accessory muscle use, respiratory distress - Cardiovascular Cardiovascular exam: Present: +S1, +S2 - GI/Abdominal GI/Abdominal exam: Present: hypoactive bowel sounds, soft. Absent: tenderness - Rectal Rectal exam: Present: deferred - Extremities Exam Extremities exam: Present: full ROM, normal inspection. Absent: pedal edema - Back Exam Back exam: Present: full ROM, normal inspection - Neurological Exam Neurological exam: Present: alert, strengths equal and symetr throughout. Absent: oriented X3 - Psychiatric Psychiatric exam: Present: normal affect, normal mood. Absent: anxious Palliative Quality Palliative Quality: Screen for Code Status: Yes, Screen for Goals of Care: Yes, Screen for Pain: Yes, If Pain Regimen Started, Initiate Bowel Regimen: NA, Screen for Nausea/Vomitting: Yes Code Status: 12/27/17 15:21 CODE [Resuscitation Status: Active] [RES] Routine Comment: Resuscitation Status: DNR-Comfort Care - Labs CBC & Chem 7: 12/30/17 06:03 12/30/17 06:03 Labs: Laboratory Results - last 24 hr 12/30/17 12/30/17 06:03 06:03 WBC 22.6 H RBC 3.67 L Hgb 9.5 L Hct 29.7 L MCV 80.9 L MCH 25.9 L MCHC 32.0 RDW 14.8 H Plt Count 406 H MPV 9.4 Immature Gran % 2.4 Seg Neutrophils % 81.9 Lymphocytes % 7.7 Monocytes % 7.7 Eosinophils % 0.1 Basophils % 0.2 Neutrophils # 18.5 H Lymphocytes # 1.8 Monocytes # 1.7 H Eosinophils # 0.0 Basophils # 0.0 Sodium 142 Potassium 3.6 Chloride 107 Carbon Dioxide 28 BUN 20 Creatinine 0.64 Est GFR ( Amer) > 60 Est GFR (Non-Af Amer) > 60 BUN/Creatinine Ratio 31 H Glucose 99 Calculated Osmolality 297 Calcium 9.1 Consult Discharge Plan - Plan Referrals: Isabelle Dick MD [Primary Care Provider] - Prescriptions: OxyCODONE Immed Rel [Roxicodone 5 MG] 5 mg PO Q4HR PRN 4 Days #24 tablet PRN Reason: Severe Pain levoFLOXacin [Levaquin] 750 mg PO DAILY 6 Days #6 tablet predniSONE [PredniSONE] 40 mg PO DAILY 5 Days #5 tablet
[2017-12-30] MEDS: *HR* OxyCODONE Immed Rel 5 MG TABLET PO PRN (11:56)
--- NOTE | 2017-12-30 12:01 | Physician Discharge Referral ---
Home Health/Hosp Referral Info Transfer to: Home Health (Discharging to [facility]), Hospice Provider in Charge Post Discharge: Cat Swamper - Diagnosis (1) Pneumonia Priority: Primary Status: Inactive (2) Mediastinal mass Priority: Secondary Status: Acute (3) Wedge compression fracture of T11 vertebra Priority: Secondary Status: Acute (4) Urinary tract infection Priority: Secondary Status: Inactive (5) Hypotension Priority: Secondary Status: Inactive (6) Acute respiratory distress Priority: Secondary Status: Resolved - Respiratory Orders Smoking Cessation: Smoking cessation has been advised. For more information, call the [place] Tobacco Quit Line at 0-775-HPHA-NOW. - Diet/Nutrition Diet/Nutrition Orders: Regular - Activity Activity Orders: Ambulate (With assistance as tolerated) - Services Needed Following services are medically necessary services: Nursing, Home Health Aide - Transfer Medications Prescriptions: OxyCODONE Immed Rel [Roxicodone 5 MG] 5 mg PO Q4HR PRN 4 Days #24 tablet PRN Reason: Severe Pain Ondansetron ODT [Zofran ODT] 4 mg SL Q6HR PRN 4 Days #16 tab.rapdis PRN Reason: nausea/vomiting levoFLOXacin [Levaquin] 750 mg PO DAILY 6 Days #6 tablet predniSONE [PredniSONE] 40 mg PO DAILY 5 Days #5 tablet Home Medications: Cholecalciferol (D-3) [Vitamin D] 2,000 unit PO DAILY 09/04/17 [History] FLUoxetine HCl [Prozac] 20 mg PO DAILY #0 11/01/17 [History] traZODone [TraZODone] 50 mg PO HS #0 11/01/17 [History] Alendronate Sodium [Fosamax] 70 mg PO TH 12/09/17 [History] Calcium Carbonate/Vitamin D3 [[place] 250 mg + Vit D Tb] 1 tab PO TID 12/09 [History] Ascorbic Acid [Vitamin C] 500 mg PO DAILY #30 tablet 12/20/17 [Rx] Ferrous Sulfate 325 mg PO DAILY #30 tablet 12/20/17 [Rx] HYDROcodone/Acet 5/325 mg [[place] 5-325 mg] 1 tab PO Q6HR PRN 5 Days #20 tablet 12/20/17 [Rx] Loratadine [Claritin] 10 mg PO DAILY PRN #0 12/20/17 [Rx] Acetaminophen [Tylenol] 650 mg PO Q4HR PRN 12/27/17 [History] Benzonatate [Tessalon] 200 mg PO TID PRN 12/27/17 [History] Ibuprofen [Motrin] 400 mg PO Q4HR PRN 12/27/17 [History] L. Acidophilus/Pectin, [place] [Acidophilus Probiotic Capsule] 1 cap PO HS [History] MOM Conc [MILK OF MAGNESIA conc] 30 ml PO DAILY PRN 12/27/17 [History] Mag Hydrox/Al Hydrox/Simeth [Maalox] 30 ml PO Q4H PRN 12/27/17 [History] Omeprazole [PriLOSEC] 20 mg PO DAILY 12/27/17 [History] Potassium Chloride 10 meq PO BID 12/27/17 [History] Ondansetron ODT [Zofran ODT] 4 mg SL Q6HR PRN 4 Days #16 tab.rapdis 12/30/17 [Rx ] OxyCODONE Immed Rel [Roxicodone 5 MG] 5 mg PO Q4HR PRN 4 Days #24 tablet [Rx] levoFLOXacin [Levaquin] 750 mg PO DAILY 6 Days #6 tablet 12/30/17 [Rx] predniSONE [PredniSONE] 40 mg PO DAILY 5 Days #5 tablet 12/30/17 [Rx] Allergies/Adverse Reactions: 3 Allergy/AdvReac Type Severity Reaction Status Date / Time Penicillins Allergy See Verified 12/27/17 10:21 Comments Certification: Further, I certify that my clinical findings support that this patient is homebound (i.e. absences from home require considerable and taxing effort and are for medical reasons or oriental orthodox services or infrequently or short duration when for other reasons) because: Attestation: My signature below is to certify that this patient is under my care and that I, or nurse practitioner, or a physician's reference assistant working with me, has a face-to -face encounter with this patient.
--- NOTE | 2017-12-30 12:03 | Physician Discharge Referral ---
ExtendedCare Referral Info Transfer To: [facility] Provider in Charge after Transfer: Heel Seat [employer]ap Stapler Institutional Level of Care: Skilled - Diagnosis (1) Pneumonia Priority: Primary Status: Inactive (2) Mediastinal mass Priority: Secondary Status: Acute (3) Wedge compression fracture of T11 vertebra Priority: Secondary Status: Acute (4) Urinary tract infection Priority: Secondary Status: Inactive (5) Hypotension Priority: Secondary Status: Inactive (6) Acute respiratory distress Priority: Secondary Status: Resolved Prognosis: Fair Aware of Diagnosis: Patient, Family Aware of Prognosis: Patient, Family - Transfer Medications Prescriptions: OxyCODONE Immed Rel [Roxicodone 5 MG] 5 mg PO Q4HR PRN 4 Days #24 tablet PRN Reason: Severe Pain Ondansetron ODT [Zofran ODT] 4 mg SL Q6HR PRN 4 Days #16 tab.rapdis PRN Reason: nausea/vomiting levoFLOXacin [Levaquin] 750 mg PO DAILY 6 Days #6 tablet predniSONE [PredniSONE] 40 mg PO DAILY 5 Days #5 tablet Home Medications: Cholecalciferol (D-3) [Vitamin D] 2,000 unit PO DAILY 09/04/17 [History] FLUoxetine HCl [Prozac] 20 mg PO DAILY #0 11/01/17 [History] traZODone [TraZODone] 50 mg PO HS #0 11/01/17 [History] Alendronate Sodium [Fosamax] 70 mg PO TH 12/09/17 [History] Calcium Carbonate/Vitamin D3 [[place] 250 mg + Vit D Tb] 1 tab PO TID 12/09 [History] Ascorbic Acid [Vitamin C] 500 mg PO DAILY #30 tablet 12/20/17 [Rx] Ferrous Sulfate 325 mg PO DAILY #30 tablet 12/20/17 [Rx] HYDROcodone/Acet 5/325 mg [[place] 5-325 mg] 1 tab PO Q6HR PRN 5 Days #20 tablet 12/20/17 [Rx] Loratadine [Claritin] 10 mg PO DAILY PRN #0 12/20/17 [Rx] Acetaminophen [Tylenol] 650 mg PO Q4HR PRN 12/27/17 [History] Benzonatate [Tessalon] 200 mg PO TID PRN 12/27/17 [History] Ibuprofen [Motrin] 400 mg PO Q4HR PRN 12/27/17 [History] L. Acidophilus/Pectin, [place] [Acidophilus Probiotic Capsule] 1 cap PO HS [History] MOM Conc [MILK OF MAGNESIA conc] 30 ml PO DAILY PRN 12/27/17 [History] Mag Hydrox/Al Hydrox/Simeth [Maalox] 30 ml PO Q4H PRN 12/27/17 [History] Omeprazole [PriLOSEC] 20 mg PO DAILY 12/27/17 [History] Potassium Chloride 10 meq PO BID 12/27/17 [History] Ondansetron ODT [Zofran ODT] 4 mg SL Q6HR PRN 4 Days #16 tab.rapdis 12/30/17 [Rx ] OxyCODONE Immed Rel [Roxicodone 5 MG] 5 mg PO Q4HR PRN 4 Days #24 tablet [Rx] levoFLOXacin [Levaquin] 750 mg PO DAILY 6 Days #6 tablet 12/30/17 [Rx] predniSONE [PredniSONE] 40 mg PO DAILY 5 Days #5 tablet 12/30/17 [Rx] Allergies/Adverse Reactions: 3 Allergy/AdvReac Type Severity Reaction Status Date / Time Penicillins Allergy See Verified 12/27/17 10:21 Comments - Respiratory Orders Smoking Cessation: Smoking cessation has been advised. For more information, call the [place] Tobacco Quit Line at 8-370-SCJM-NOW. CERTIFICATION: I certify that the transfer of the above named patient to an Extended Care Facility is necessary for the continuing treatment of the diagnosis listed. The above information is true and accurate reflection of patient's current condition. Confidential - Redisclosure prohibited without a patient's written consent.
[2018-01-02] MEDS ORDERED: (Alendronate Sodium [Fosamax] 70 MG) PO SCH (10:48)
== END 2017-12-30 14:50 | disposition home health service (06) | DRG 871 ==
LOC: EMEROO 08:53 → 3BNU 08:53
PROVIDERS: ADMIT Family Medicine; ATTEND Family Medicine